=== PATIENT | female | born 2000 | race Caucasian/White ===

== ENCOUNTER 2025-04-02 16:37 | Outpatient (OUT) | payer OTHER, SELFPAY ==
--- OUTSIDE RECORDS SUMMARY | 2025-03-19 12:00 | XMS_ITS | Encounter Summary ---
Author Organization [facility] Address [address] [place] [address] Care Team Providers Care Minute Clerk Name Role Phone Unavailable Primary Care Provider Unavailabl e Encounter Details DateTypeDepartmentCare Team (Latest Contact Info)Ulcusgwvajp37/23/2025 1:00 PM EDTAncillary Procedure [facility] [address] [place] [address] Missed menses; Positive urine test ([facility]) Social History Tobacco UseTypesPacks/DayYears UsedDateSmoking Tobacco: NeverSmokeless Tobacco: NeverEstimated Date of YbdihwzzYgcddfiqIls40/02/2026ased on last menstrual period of 01/20/2025Sex and Gender InformationValueDate RecordedSex Assigned at BirthNot on fileLegal PhpLrbtjw52/14/2025 9:33 AM EDTGender Identity Not on fileSexual OrientationNot on filedocumented as of this encounter Plan of Treatment DateTypeDepartmentCare Team (Latest Contact Info)Ododaeucska89/04/2025 8:40 AM ESTRoutine [facility] [address] [place] [address] Haider Puentes DO [address] [place], [place] [id number] documented as of this encounter Procedures Procedure NamePriorityDate/TimeAssociated DiagnosisCommentsUS OB TRANSVAGINAL Autvuvw1303/19/2025 1:36 PM EDT Missed menses Positive urine test ([facility]) documented in this encounter Results * US OB transvaginal (03/19/2025 1:36 PM EDT)Anatomical RegionLateralityModality BodyUltrasoundSpecimen (Source)Anatomical Location / LateralityCollection Method / VolumeCollection TimeReceived Time03/19/2025 3:40 PM EDT Impressions 03/20/2025 7:26 AM EDT Findings consistent with a live intrauterine gestation, current sonographic age of weeks and days resulting in an estimated date of delivery of TRANSCRIBED BY: ? ELECTRONICALLY SIGNED BY: Too Tirado MD Narrative 03/20/2025 7:26 AM EDT FINDINGS: A single intrauterine gestational sac is present. ??No subchorionic hemorrhage. ??A single pole is present. Normal heart rate at 143 beats per minute. ??Yolk sac also is seen. ?? Current sonographic age is 7 ??weeks and 6 ??days based on the crown-rump length measurement of 15 mm. ??Based on this age, current estimated date of delivery is ??October 30, 2025 ??No pelvic fluid or adnexal mass present. ??Cervix closed, 3.1 cm. Procedure Note Too Tirado MD - 03/20/2025 FINDINGS: A single intrauterine gestational sac is present. No subchorionichemorrhage. A single pole is present. Normal heart rate at143 beats per minute. Yolk sac also is seen. Current sonographic age is7 weeks and 6 days based on the crown-rump length measurement of 15 mm.Based on this age, current estimated date of delivery is October 30, 2025 Nopelvic fluid or adnexal mass present. Cervix closed, 3.1 cm. IMPRESSION: Findings consistent with a live intrauterine gestation, currentsonographic age of weeks and days resulting in an estimated date ofdelivery of TRANSCRIBED BY: ELECTRONICALLY SIGNED BY: Too Tirado MD Authorizing ProviderResult TypeResult StatusCorey Dhaval RANGEL OB US PROCEDURES Final Result documented in this encounter Visit Diagnoses Diagnosis Missed menses Positive urine test ([facility]) documented in this encounter
--- OUTSIDE RECORDS SUMMARY | 2025-03-19 12:30 | XMS_ITS | Encounter Summary ---
Author Organization [facility] Address [address] [place] [address] Care Team Providers Care Automobile Radiator Mechanic Name Role Phone Unavailable Primary Care Provider Unavailabl e Reason for Visit * ReasonCommentsRoutine Visit Encounter Details DateTypeDepartmentCare Team (Latest Contact Info)Dytnmffhrtd35/23/2025 1:30 PM EDTInitial [facility] [address] [place] [phone] Haider Puentes DO [address] [facility] [address] [place], [facility] GA: 8w2d Social History Tobacco UseTypesPacks/DayYears UsedDateSmoking Tobacco: NeverSmokeless Tobacco: Never Tobacco Cessation:Counseling Given: Not Answered Estimated Date of ZuzhbhofVqdkyybyKst07/02/2026ased on last menstrual period of 01/20/2025Sex and Gender InformationValueDate RecordedSex Assigned at BirthNot on fileLegal WocNklqlq76/14/2025 9:33 AM EDTGender IdentityNot on file Sexual OrientationNot on filedocumented as of this encounter Last Filed Vital Signs Vital SignReadingTime TakenCommentsBlood Krtthqtk99/7003/19/2025 1:53 PM EDT Pulse--Temperature--Respiratory Rate--Oxygen Saturation--Inhaled Oxygen Concentration--Ooumwg70 kg (108 lb)03/19/2025 1:53 PM EDTHeight--Body Mass Index --documented in this encounter Progress Notes * Radha Torres - 03/19/2025 1:30 PM EDT Reason for Appointment: Patient ID: Rachna Patrick is a 25 y.o. female who presents for Routine Visit Patient presents today for a Nurse OB Intake appointment. Patient is 8w2d with a Estimated Date of Delivery: 10/27/25 OB History Para Term AB Living 1 SAB IAB Ectopic Multiple Live Births # Outcome Date GA Lbr Junior/2nd Weight Sex Type Anes PTL Lv 1 Current Current Medications: has a current medication list which includes the following prescription(s): ondansetron odt. Medical History: Active Ambulatory Problems Diagnosis Date Noted No Active Ambulatory Problems Resolved Ambulatory Problems Diagnosis Date Noted No Resolved Ambulatory Problems No Additional Past Medical History No family history on file. Social History Tobacco Use Smoking status: Not on file Smokeless tobacco: Not on file Substance Use Topics Alcohol use: Not on file Drug use: Not on file History reviewed. No pertinent surgical history. No Known Allergies Vitals: There is no height or weight on file to calculate BMI. BP: Patient's last menstrual period was 01/20/2025. Assessment/Plan Diagnoses and all orders for this visit: Missed menses - Type and screen; Future - ABO/Rh; Future - CBC and differential - Hemoglobin A1c - RPR - Rubella antibody, IgG - Hepatitis B surface antigen - Hepatitis C antibody - HIV-1 and HIV-2 antibodies - Urine culture - POCT , urine manually resulted - POCT urinalysis dipstick manually resulted , unspecified gestational age ([facility]) - Type and screen; Future - ABO/Rh; Future - CBC and differential - Hemoglobin A1c - RPR - Rubella antibody, IgG - Hepatitis B surface antigen - Hepatitis C antibody - HIV-1 and HIV-2 antibodies - Rapid drug screen, urine; Future Encounter for supervision of normal first in first trimester ([facility]) - Rapid drug screen, urine; Future Nurse Note: Follow Up: Patient is to have labs drawn at directed and return to office for initial OB appointment with provider. Patient may call office as needed with any concerns or questions. Nurse Visit Completed by: Radha Torres documented in this encounter Plan of Treatment DateTypeDepartmentCare Team (Latest Contact Info)Iqhsnuvluxu58/04/2025 8:40 AM ESTRoutine [facility] [address] [place] [address] [place] [address] Haider Puentes, DO [address] [place] [address] [place] [address] NameTypePriorityAssociated DiagnosesOrder ScheduleType and screenLabRoutine Missed menses , unspecified gestational age ([facility]) Expected: 03/19/2025 (Approximate), Expires: 03/19/2026BO/RhLabRoutine Missed menses , unspecified gestational age ([facility]) Expected: 03/19/2025 (Approximate), Expires: 03/19/2026BC and differentialLab Routine Missed menses , unspecified gestational age ([facility]) Ordered: 03/19/2025Hemoglobin A5qKboQmvgtte Missed menses , unspecified gestational age ([facility]) Ordered: 03/19/2025RPRLabRoutine Missed menses , unspecified gestational age ([facility]) Ordered: 03/19/2025Rubella antibody, IgGLabRoutine Missed menses , unspecified gestational age ([facility]) Ordered: 03/19/2025Hepatitis B surface antigenLabRoutine Missed menses , unspecified gestational age ([facility]) Ordered: 03/19/2025Hepatitis C antibodyLabRoutine Missed menses , unspecified gestational age ([facility]) Ordered: 03/19/2025HIV-1 and HIV-2 antibodiesLabRoutine Missed menses , unspecified gestational age ([facility]) Ordered: 03/19/2025Urine cultureMicrobiologyRoutine Missed menses Ordered: 03/19/2025Rapid drug screen, urineLabRoutine , unspecified gestational age ([facility]) Encounter for supervision of normal first in first trimester ([facility]) Expected: 03/19/2025 (Approximate), Expires: 03/19/2026documented as of this encounter Procedures Procedure NamePriorityDate/TimeAssociated DiagnosisCommentsPOCT URINALYSIS UJURMJHJHwxkuvb11/23/2025 1:48 PM EDT Missed menses POCT , IWPHTVynvkvz75/23/2025 1:47 PM EDT Missed menses documented in this encounter Results * (ABNORMAL) POCT urinalysis dipstick manually resulted (03/19/2025 1:48 PM EDT) ComponentValueRef RangeTest MethodAnalysis TimePerformed AtPathologist SignatureColor, UAYellowClarity, UAClearGlucose, UANegativeNegative - 2000(110) ++++ mg/dLBilirubin, UANegativeNegative - 4(70) +++ mg/dLKetones, UA PositiveNegative - 160(16) ++++ mg/dLSpec Grav, UA1.0151 - 1.03Blood, UA PositiveNegative - 50 Beau/mcLpH, UA5.55 - 9Protein, UATraceNegative - 2000(20) ++++ mg/dLUrobilinogen, UA2.00.2 - 12 mg/dLLeukocytes, UA3+Negative - 500+++ Gerald/mcLNitrite, UATraceNegative - PositiveSpecimen (Source)Anatomical Location / LateralityCollection Method / VolumeCollection TimeReceived TimeUrine 03/19/2025 1:48 PM EDT Narrative Authorizing ProviderResult TypeResult StatusCorey Dhaval DOPOINT OF CARE TEST ENTER/EDIT ORDERABLESFinal Result * (ABNORMAL) POCT , urine manually resulted (03/19/2025 1:47 PM EDT) ComponentValueRef RangeTest MethodAnalysis TimePerformed AtPathologist SignaturePreg Test, UrPositiveNegativeSpecimen (Source)Anatomical Location / LateralityCollection Method / VolumeCollection TimeReceived TimeUrine 03/19/2025 1:47 PM EDT Narrative Authorizing ProviderResult TypeResult StatusCorey Dhaval DOPOINT OF CARE TEST ENTER/EDIT ORDERABLESFinal Result documented in this encounter Visit Diagnoses Diagnosis Missed menses , unspecified gestational age ([facility]) Encounter for supervision of normal first in first trimester ([facility]) documented in this encounter
--- OUTSIDE RECORDS SUMMARY | 2025-03-23 04:30 | XMS_ITS ---
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 C/o left side back pain off and on x3 months. No injury but does a lot of heavy lifting, Currently 8 weeks Social History Tobacco Use: Social History Observation Description Date Details (start date - stop date) Never Smoker NA - NA Tobacco Control (Standard) Question Answer Notes Tobacco use: Nonsmoker AUDIT-C (Standard) Question Answer Notes Did you have a drink containing alcohol in the p ast year? No Kfvhgz7CtbwjblatpakmzZhtosbhx Problems Problem Type SNOMED Code ICD Code Onset Dates Problem Status W/U Status Risk Notes Problem Well adult (318402314) Well adult (Z00.00 ) Activeconfirmed Vital Signs Weight 107.6 lbs 03/23/2025 Height 60 in 03/23/2025 Blood pressure systolic 112 mm Hg 03/23/20 25 Blood pressure diastolic 60 mm Hg 025 BMI 21.01 kg/m2 03/23/2025 Encounters Encounter Location Date Provider Diagnosis [facility] [address] [place] [address] 03/23/2025 Miky Thompson Well adult Z00.0 0 Assessments Encounter Date Diagnosis (ICD Code) Assessment Notes Treatment Notes Treatment Clinical Notes Section Notes 03/23/2025 Well adult (ICD-10 - Z00.00) Plan Of Treatment No Information Progress Notes * Anna MATTHEWS:2000 (25 yo F)Acc No.[id number]:03/23/2025 New Patient Patient: Rachna CLEMENTE :?Abel Thompson ([facility]), MDDOB:2000???Age: 25 Y???Sex:FemaleDate:03/23/2025Phone:[phone]:[address], [address], [place], [id number] In:09:08 AM ESTCheck Out:09:39 AM EST Subjective: * Chief Complaints: * 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 C/o left side back pain off and on x3 months. No injury but does a lot of heavy liftingCurrently 8 weeks * HPI: ???General:? going well Left low back pain - no new or old injury -? Heating poai helping some. ???Depression Screening:?PHQ-2 (2015 Edition)?Little interest or pleasure in doing things? Not at all ?Feeling down, depressed, or hopeless??Not at all ?Total Score?0 * ROS: ???EENT:?hearing changes?denies.?visual changes?denies. non-healing mouth sores?denies.?swollen glands or neck lumps?denies.?hoarseness?denies.?sore throat?denies.?difficulty swallowing?denies.?nose bleeds?denies.?nasal congestion?denies.?ear ache?denies.?ear discharge denies.?ringing in ears?denies.?light sensitivity?denies.?eye pain?denies.?blurring?denies.?eye irritation?denies.?double vision?denies. vision loss?denies.?General/Constitutional:?Sweats:?Denies.?Fatigue?denies.?Sleep proble ms?denies.?Anorexia?denies.?Malaise?denies.?Weight loss?denies. Fatigue or Weakness?denies.?Fever or Chills?denies.?Cardiovascular:?Shortness of Breath w/lying flat?denies.?Lightheadedne ss/dizziness?denies.?Chest tightness/ heavy pressure?denies.?Swelling of legs, a nkles, or feet?denies.?Waking up with shortness of breath?denies.?Chest pain&#16 0;denies.?Palpitations?denies.?Weight gain?denies.?Respiratory:?Chronic or frequent cough?denies.?Coughing up blood&#1 60;denies.?Difficulty breathing?denies.?Productive cough?denies.?Snoring&#1 60;denies.?Shortness of breath that awakens from sleep (PND)?denies.?Chest pain? denies.?Sputum production?denies.?Wheezing?denies.?Musculoskeletal:?Joint pain?denies.?Joint Fluid?denies.?Backpain?denies.?Knee pain?denies.?Neck pain?denies.?Joint Stiffness?denies.?Muscle cramps?denies.?Weakness of muscles?denies.?Arthritis?denies.?Muscle aches?denies.?Pain in shoulder(s)?denies.?Swollen joints?denies.? * Active Problem List Z00.00 Well adult Modified On:03/23/2025W/U Status:confirmed * Medical History: * Surgical History: A ppendectomy 2022 * Hospitalization/Major Diagno stic Procedure: d enies * Family History: F ather: alive, diagnosed with Diabetes, Hypertension. M other: alive. B rother(s): alive. S ister(s): alive. 2 brother(s) , 4 sister(s) . . * Social History: ???Tobacco Use:?Tobacco Control (Standard)?Tobacco use:?Nonsmoker ???Drug/Alcohol:?AUDIT-C (Standard)?Did you have a drink containing alcohol in the past year??No ?Points?0 ?Interpretation?Negative * Medications: N one * Allergies: N .K.D.A.no[Allergies Verified] Objective: * Vitals: W t:107.6lbs, Ht: 60 in, BP:112/60mm Hg, BMI:21.01Index, Ht-cm: 152.4 cm, Wt-k.81 kg. * Examination: ???Physical Exam: ?GENERAL:?well developed, well nourished, in no acute distress.?HEAD:?normocephalic/atraumatic.?EYES:?pupils equal, round and reactive to light, conjunctivae and sclerae normal.?EARS:?no deformity or lesion of external ear, canals and TM appear normal bilaterally, TM's intact, not inflamed with normal light reflex, hearing grossly normal to conversational speech.?NOSE:?no deformity, discharge, inflammation, or lesions. ?MOUTH:?mucous membranes moist, normal oropharynx and posterior pharynx without lesions or exudates, tongue normal, dentition normal.?NECK:?neck supple, no masses or palpable cervical nodes, trachea midline, thyroid without nodules, masses, tenderness, or enlargement.?CHEST:?no chest wall deformity, no chest wall tenderness. ?LUNGS:?normal respiratory effort and clear to auscultation, no wheezes, rales, or rhonchi, good air exchange.?CARDIO:?regular rate and rhythm, normal S1 and S2, nor murmur, rub, or gallop.?PULSES:?normal capillary refill.?ABDOMEN:?soft, non-distended, non-tender, no masses.?MUSCULOSKELETAL:?no deformity or scoliosis noted, normal range of motion, joints normal, no erythema, edema, effusion, or ecchymosis.?EXTREMITY:?no clubbing, cyanosis, edema, or deformity withnormal ROM in both upper and lower bilateral extremities.?NEUROLOGIC:?grossly normal.?SKIN:?no rashes, ulcerations, or suspicious lesions.?LYMPH NODES:?no cervical adenopathy, nodes normal.?MENTAL STATUS:?alert and oriented x3, normal mood and affect.? Assessment: * Assessment: 1.?Well adult - Z00.00 (Primary)??? Plan: * Treatment: * Procedure Codes: 3 078F DIAST BP < 80 MM [id number] SYST BP LT 130 MM HG * * Sign off status: CompletedVisit Status:?CHK (Check Out) true * Provider: Cleopatra Thompson ([facility])MD Date: 1 Generated for Printing/Faxing/eTransmitting on:?04/02/2025 04:43 PM EST History and Physical Notes * HPI (History of Present Illness) CategorySub-CategoryDetailNotesCategory NotesGeneral going well Left low back pain - no new or old injury - Heating poai helping some Depression ScreeningPHQ-2 (2015 Edition)Little interest or pleasure in doing things?: Not at allFeeling down, depressed, or hopeless?: Not at allTotal Score: 0 Examination CategorySub-CategoryDetailNotesCategory NotesPhysical ExamGENERAL:well developed, well nourished, in no acute distressHEAD:normocephalic/atraumatic EYES:pupils equal, round and reactive to light, conjunctivae and sclerae normal EARS:no deformity or lesion of external ear, canals and TM appear normal bilaterally, TM's intact, not inflamed with normal light reflex, hearing grossly normal to conversational speechNOSE:no deformity, discharge, inflammation, or lesionsMOUTH:mucous membranes moist, normal oropharynx and posterior pharynx without lesions or exudates, tonguenormal, dentition normalNECK:neck supple, no masses or palpable cervical nodes, trachea midline, thyroid without nodules, masses, tenderness, or enlargementCHEST:no chest wall deformity, no chest wall tendernessLUNGS:normal respiratory effort and clear to auscultation, no wheezes, rales, or rhonchi, good air exchangeCARDIO:regular rate and rhythm, normal S1 and S2, nor murmur, rub, or gallopPULSES:normal capillary refillABDOMEN:soft, non-distended, non-tender, no massesRECTAL:MUSCULOSKELETAL:no deformity or scoliosis noted, normal range of motion, joints normal, no erythema, edema, effusion, or ecchymosisEXTREMITY:no clubbing, cyanosis, edema, or deformity with normal ROM in both upper and lower bilateral extremitiesNEUROLOGIC:grossly normalSKIN:no rashes, ulcerations, or suspicious lesionsLYMPH NODES:no cervical adenopathy, nodes normalMENTAL STATUS:alert and oriented x3, normal mood and affect
--- OUTSIDE RECORDS SUMMARY | 2025-04-02 16:43 | XMS_ITS | Clinical Summary ---
Author Organization [facility] Address [address] [place] [address] Care Team Providers Care Order Schedule Clerk Name Role Phone Unavailable Primary Care Provider Unavailabl e Allergies Active AllergyReactionsCriticalityNoted QrhxXtjnnklaWnyfrHslju62/23/2025 Medications MedicationSigDispense QuantityRefillsLast FilledStart DateEnd DateStatus ondansetron ODT (Zofran-ODT) 4 MG disintegrating tablet Indications:NauseaTake 1 tablet (4 mg) by mouth every 6 (six) hours if needed for nausea or vomiting 30 tablet 5Active Encounters DateTypeDepartmentCare McqxRyalndbbwlp67/04/2025Telephone [facility] [address] [place] [address] Haider Puentes DO 03/19/2025 1:30 [place] [address] Haider Puentes DO [place]: 8w2d03/19/2025 1:00 PM EDTAncillary [place] [address] Missed menses; Positive urine test ([facility])03/10/2025Telephone [facility] [address] [place] [address] Haider Puentes DO from Last 3 Months Social History Tobacco UseTypesPacks/DayYears UsedDateSmoking Tobacco: NeverSmokeless Tobacco: Never Tobacco Cessation:Counseling Given: Not Answered Estimated Date of AuleofqhFxqfmmrjYoq94/02/2026ased on last menstrual period of 01/20/2025Sex and Gender InformationValueDate RecordedSex Assigned at BirthNot on fileLegal LfaAmzito74/14/2025 9:33 AM EDTGender IdentityNot on file Sexual OrientationNot on file Last Filed Vital Signs Vital SignReadingTime TakenCommentsBlood Jhftaktz38/7003/19/2025 1:53 PM EDT Pulse--Temperature--Respiratory Rate--Oxygen Saturation--Inhaled Oxygen Concentration--Skwgya78 kg (108 lb)03/19/2025 1:53 PM EDTHeight--Body Mass Index -- Plan of Treatment DateTypeDepartmentCare Team (Latest Contact Info)Arieezvcwmb54/04/2025 8:40 AM ESTRoutine [facility] [address] [address] Haider Puentes DO [address] [facility] [place] [address] Health MaintenanceDue DateLast DoneCommentsCOVID-19 Vaccine ( season) 501/, 05/31/2020Influenza Vaccine (#1)504/06/2024, 06/11/2012Pneumococcal Vaccine: Pediatrics (0 to 5 Years) and At-Risk Patients (6 to 64 Years)Aged OutNo longer eligible based on patient's age to complete this topic Procedures Procedure NamePriorityDate/TimeAssociated DiagnosisCommentsPOCT URINALYSIS EBVSTKCFCezsuwt39/23/2025 1:48 PM EDT Missed menses POCT , PQJNFGydieki34/23/2025 1:47 PM EDT Missed menses US OB VBHVJPFZPCDCKzcount47/23/2025 1:36 PM EDT Missed menses Positive urine test ([facility]) from Last 3 Months Results * (ABNORMAL) POCT urinalysis dipstick manually [...] OF CARE TEST ENTER/EDIT ORDERABLESFinal Result * US OB transvaginal (03/19/2025 1:36 PM [...] Tirado MD Authorizing ProviderResult TypeResult StatusCorey Dhaval DOIMG OB US PROCEDURES Final Result from Last 3 Months Insurance
--- OUTSIDE RECORDS SUMMARY | 2025-04-02 16:43 | XMS_ITS | Encounter Summary ---
Author Organization [facility] Address [address] [place] [address] Care Team Providers Care Non Destructive Testing Supervisor Name Role Phone Unavailable Primary Care Provider Unavailabl e Encounter Details DateTypeDepartmentCare Team (Latest Contact Info)Mbhtxhpdqly10/04/2025Telephone [facility] [address] [place] [address] Haider Puentes DO [address] [facility] [address] [place], [facility] Social History Tobacco UseTypesPacks/DayYears UsedDateSmoking Tobacco: NeverSmokeless Tobacco: NeverEstimated Date of NzclipvoDwowehhwEgr55/02/2026ased on last menstrual period of 01/20/2025Sex and Gender InformationValueDate RecordedSex Assigned at BirthNot on fileLegal UqhGxzpgk84/14/2025 9:33 AM EDTGender Identity Not on fileSexual OrientationNot on filedocumented as of this encounter Miscellaneous Notes * Telephone Encounter - Radha Ortiz LPN - 03/31/2025 2:00 PM EST I was just calling to see if I can get some more nausea medication sent to my pharmacy just becauseI took my last 1 and I definitely still need them, so if you can give me a call back. Patient call was returned and she was advised that we sent in 2 refills to the pharmacy so she should be able to call pharmacy and ask for medication refilled and pick those up, if any further needs to reach out to office. documented in this encounter Plan of Treatment DateTypeDepartmentCare Team (Latest Contact Info)Mepddvuocpt95/04/2025 8:40 AM ESTRoutine [facility] [address] [facility] [place] [address] Haider Puentes DO [address] [place] [address] [place] [address] documented as of this encounter Visit Diagnoses Not on filedocumented in this encounter
--- OUTSIDE RECORDS SUMMARY | 2025-04-02 16:43 | XMS_ITS | Clinical Summary ---
Author Organization [facility] tem Address [id number] [address] [place] [address] Care Team Providers Care Management Professional Name Role Phone Oma Lopes MD Primary Care Provider [phone] Allergies No known active allergies Medications No known medications Active Problems ProblemNoted DateDiagnosed DateAcute yjsviikvqtyq91/25/[address]22Nexplan[address] in [address] 07/30/2020 Overview (07/30/2020): Nexplanon placed 07/01/20 upper left arm by Roula Hobson Family History Medical HistoryRelationNameCommentsNo Known ProblemsBrother 1No Known Problems Brother 2DiabetesFatherHypertensionFatherNo Known ProblemsMotherAsthmaSister Breast cancerNeg HxCancerNeg HxColon cancerNeg HxOvarian cancerNeg HxStrokeNeg HxRelationNameStatusCommentsBrother 1Brother 2FatherAliveMotherAliveSister Social History Tobacco UseTypesPacks/DayYears UsedDateSmoking Tobacco: NeverSmokeless Tobacco: NeverAlcohol UseStandard Drinks/WeekCommentsNo0 (1 standard drink = 0.6 oz pure alcohol)Social Connection and Isolation PanelAnswerDate RecordedIn a typical week, how many times do you talk on the phone with family, friends, or neighbors?Three times a week11/19/2021How often do you get together with friends or relatives?Three times a week11/19/2021How often do you attend anabaptism or evangelical services?Never2Do you belong to any clubs or organizations such as anabaptism groups, unions, fraternal or athletic groups, or school groups?No 11/19/2021How often do you attend meetings of the clubs or organizations you belong to?Never11/19/2021re you , , , , never , or living with a partner?Never hldqufz8311/19/2021UDIT-CAnswerDate RecordedQ1: How often do you have a drink containing alcohol?Never11/19/2021Q2: How many drinks containing alcohol do you have on a typical day when you are drinking?Patient does not drink11/19/2021Q3: How often do you have six or more drinks on one occasion?Never11/19/2021verall Financial Resource Strain (CARDIA) AnswerDate RecordedHow hard is it for you to pay for the very basics like food, housing, medical care, and heating?Not hard at all11/19/2021HQ-2AnswerDate RecordedTotal Hzcsg776[facility] [place] of Occupational Health - Occupational Stress QuestionnaireAnswerDate RecordedDo you feel stress - tense, restless, nervous, or anxious, or unable to sleep at night because yourmind is troubled all the time - these days?Not at all11/19/2021Exercise Vital SignAnswer Date RecordedOn average, how many days per week do you engage in moderate to strenuous exercise (like a brisk walk)?2 days11/19/2021n average, how many minutes do you engage in exercise at this level?30 min11/19/2021RAPARE - TransportationAnswerDate RecordedIn the past 12 months, has lack of transportation kept you from medical appointments or from getting medications?No 11/19/2021In the past 12 months, has lack of transportation kept you from meetings, work, or from getting things needed for daily living?No11/19/2021 ChildcareAnswerDate RecordedDo problems getting children's program coordinator make it difficult for you to work or study?No11/19/2021EmploymentAnswerDate RecordedDo you need help finding a local career center and/or a training program?No11/19/2021urpose - LifeAnswerDate RecordedI have a purpose and direction in my life.Strongly Agree 11/19/2021CommentsUnknownSex and Gender InformationValueDate RecordedSex Assigned at BirthNot on fileLegal TwlCwigzf78/06/2015 11:58 AM EDTGender IdentityNot on fileSexual ZriczuuvuxyEslculzo76/25/2022 3:36 AM EDT Last Filed Vital Signs Vital SignReadingTime TakenCommentsBlood Pmykbwxn419/8506 2:31 PM EDT Smrnc513011/19/2021 2:31 PM PYREpjtuujdgmy11.6 ??C (97.8 ??F)11/19/2021 2:31 PM EDTRespiratory Gmfu706411/19/2021 2:31 PM EDTOxygen Hbuzdjoyqg28%11/19/2021 2:31 PM EDTInhaled Oxygen Concentration--Hfutjr44.9 kg (136 lb 6.4 oz)11/19/2021 3:00 AM YLDWownmg913.4 cm (5')11/19/2021 3:00 AM EDTBody Mass Index26.64011/19/2021 3:00 AM EDT Plan of Treatment Health MaintenanceDue DateLast DoneCommentsDepression Alnixtoew43/08/2013Tobacco Bvccctasx51/08/2013dult BMI Agkvvkkow83/08/2019Pap Smear2DTaP,Tdap and Td Vaccines (7 - Td or Tdap)/, 02/05/2006, 08/05/2005, Additional history existsCOVID-19 Vaccine ( season)2025 06/21/2020, 05/31/2020Influenza Migbzpn73/ Medical Devices Not on file Insurance * Guarantor: Rand PATRICK TypeRelation to PatientDate of BirthPhoneBilling AddressPersonal/FamilyMother [address] [place] [id number] Advance Directives * Full Code (Latest Code Status on File) Date ActivatedDate InactivatedComments11/19/2021 3:22 AM11/19/2021 8:46 PM Care Teams Team MemberRelationshipSpecialtyStart DateEnd Date Oma Lopes MD [address] [place] [address] [facility]10/02/16
--- OUTSIDE RECORDS SUMMARY | 2025-04-02 16:43 | XMS_ITS | Patient Health Record ---
Author Organization [facility] [place] Address [address] [place] [address] Care Team Providers Care Software Reverse Engineer Name Role Phone Miky Thompson Primary Care Provider [phone] Allergies No Known Allergies Reason For Referral No Information Social History Tobacco Use: Social History Observation Description Date Details (start date - stop date) Never Smoker NA - NA Tobacco Control (Standard) Question Answer Notes Tobacco use: Nonsmoker AUDIT-C (Standard) Question Answer Notes Did you have a drink containing alcohol in the p ast year? No Yhusbr6LwtaigzvrpbccbOaqjcjow Problems Problem Type SNOMED Code ICD Code Onset Dates Problem Status W/U Status Risk Notes Problem Well adult (526405311) Well adult (Z00.00 ) Activeconfirmed Vital Signs Blood pressure diastolic 60 mm Hg 03/23/2025 Kjqema95 in03/23/2025lood pressure krtgbopj870 mm Hg03/23/20251742Cetmxp988.6 lbs 03/23/2025BMI21.01 kg/m203/23/2025 Encounters Encounter Location Date Provider Diagnosis [facility] [address] [place] [address] 03/23/2025 Miky Thompson Well adult Z00.0 0 Assessments Encounter Date Diagnosis (ICD Code) Assessment Notes Treatment Notes Treatment Clinical Notes Section Notes 03/23/2025 Well adult (ICD-10 - Z00.00) Plan Of Treatment No Information Insurance Providers Payer Name Payer Address Payer Phone Subscriber Number Group Number Insured Name Patient Relationship to Insured Coverage Start Date Coverage End Date [facility] [address] [facility] [id number] Arvind Patrick - patient is the insured Medical (General) History Surgical History Surgery Date(Month/Year) Appendectomy 2022 Hospitalization History Reason Date(Month/Year) denies
[2025-04-02 17:17] LABS: Hematocrit 33.8 % (36.0-48.0); Hemoglobin 11.3 g/dL (12.0-16.0); Immature Granulocytes Abs Auto 0.05 10^3/uL (0.00-0.03); Immature Granulocytes Pct Auto 0.3 % (0.0-0.5); Lymphocytes Absolute Auto 0.9 10^3/uL (1.2-3.8); Mean Corpuscular HGB Conc 33.4 g/dL (29.9-35.2); Mean Corpuscular Hemoglobin 26.4 pg (26.7-34.0); Mean Corpuscular Volume 79.0 fL (81.0-99.0); Platelet Count 295 10^3/uL (150-450); Red Blood Count 4.28 10^6/uL (4.20-5.40); White Blood Count 15.9 10^3/uL (4.0-11.0)
[2025-04-02 17:33] LABS: Cannabinoid Screen Urine POSITIVE (NEGATIVE); Methamphetamines Screen Urine NEGATIVE (NEGATIVE); Tricyclic Antidepressant Urine NEGATIVE (NEGATIVE)
[2025-04-04 07:08] LABS: Rubella Antibodies, IgG 3.80 index (Immune >0.99)
[2025-04-04 12:08] LABS: Rapid Plasma Reagin, Quant Non Reactive titer (NonRea<1:1)
== END 2025-04-02 16:38 | disposition home or self-care (01) ==
PROVIDERS: PCP Family Medicine; Visit Provider Obstetrics & Gynecology
DX: Z34.01 Encounter for supervision of normal first pregnancy, first trimester (principal)
CPT/HCPCS: 36415; 80307; 80349; 83036; 85025; 86592; 86762; 86803; 86850; 86900; 86901; 87086; 87186; 87340; 87389